=== PATIENT | female | born 1975 | race Caucasian/White ===

== ENCOUNTER 2017-11-16 14:12 | Emergency (ER) | payer OTHER ==
[~2017-11-16] VITALS: Ht 165.1 cm; Wt 93.6 kg
[2017-11-16 14:22] VITALS: BP 140/75
[2017-11-16] MEDS ORDERED: DOXY100C43 PO (14:27)
== END 2017-11-16 14:41 | disposition home or self-care (01) ==
LOC: ER 14:12
DX: Z76.0 Encounter for issue of repeat prescription (principal); Z88.0 Allergy status to penicillin; Z88.2 Allergy status to sulfonamides
CPT/HCPCS: 99283